=== PATIENT | male | born 1945 | race Caucasian/White ===

== ENCOUNTER 2023-05-20 11:43 | Day surgery (SDC) | payer OTHER ==
[~2023-05-20] VITALS: Wt 83.2 kg
[2023-05-20] MEDS ORDERED: LOSA50 (12:08)
[2023-05-20] MEDS ORDERED: ATEN50 (12:08)
[2023-05-20] MEDS ORDERED: AMLODIPINE-OLM1 EAC4 PO (12:08)
[2023-05-20] MEDS ORDERED: EUTHYROX50 MCG (12:08)
[2023-05-20 13:51] VITALS: BP 154/76
--- NOTE | 2023-05-20 13:53 | NUR ---
05/20/23 1353 Vi Mandujano IV DC'D, CATH INTACT. PT TOLERATED WELL. COBAN/GAUZE IN PLACE
== END 2023-05-20 13:53 | disposition home or self-care (01) ==
LOC: ORSCSDS 11:43
PROVIDERS: Internal Medicine Gastroenterology
PROC: 0DBM8ZX Excision of Descending Colon, Via Natural or Artificial Opening Endoscopic, Diagnostic (ICD-10-PCS; principal; 2023-05-20 13:30)
PROC: 0DBH8ZX Excision of Cecum, Via Natural or Artificial Opening Endoscopic, Diagnostic (ICD-10-PCS; principal; 2023-05-20 13:30)
PROC: 0DBL8ZX Excision of Transverse Colon, Via Natural or Artificial Opening Endoscopic, Diagnostic (ICD-10-PCS; principal; 2023-05-20 13:30)
DX: Z12.11 Encounter for screening for malignant neoplasm of colon (principal); Z86.010 Personal history of colon polyps; D12.4 Benign neoplasm of descending colon; D12.0 Benign neoplasm of cecum; D12.3 Benign neoplasm of transverse colon; K57.30 Diverticulosis of large intestine without perforation or abscess without bleeding; K64.8 Other hemorrhoids; I10 Essential (primary) hypertension; E03.9 Hypothyroidism, unspecified; F17.210 Nicotine dependence, cigarettes, uncomplicated; Z79.899 Other long term (current) drug therapy
CPT/HCPCS: 82947; 88305; J2704; J7120

== ENCOUNTER → 2024-09-10 | Outpatient (CLI) | payer OTHER ==
[~2024-09-10] MED LIST: AMLODIPINE-OLM1 EAC4 PO; ATEN50; EUTHYROX50 MCG; LOSA50
[2024-09-10 19:27] LABS: Protein, Urine Quantitative 8.7 mg/dL (0.0-11.9)
[2024-09-10 19:37] LABS: Microalbumin, Urine Quant. <5.000 mg/L (0.000-20.000); Sodium, Urine 70 mmol/L (20-110)
[2024-09-17 10:53] LABS: HOURS COLLECTED 24 hr; TOTAL VOLUME 1650 mL
== END | disposition home or self-care (01) ==
LOC: LAB 11:02 → LAB SHORT 11:02
PROVIDERS: Internal Medicine Nephrology
DX: N18.30 Chronic kidney disease, stage 3 unspecified (principal); D75.1 Secondary polycythemia
CPT/HCPCS: 82043; 82570; 84156; 84166; 84300; 86335

== ENCOUNTER → 2025-07-13 | Outpatient (CLI) | payer OTHER ==
[2025-07-13 20:02] LABS: Anion Gap 9.0 mmol/L (3-11); Blood Urea Nitrogen 23.0 mg/dL (8-24); CO2, Blood 28.0 mmol/L (21-32); Calcium, Blood 9.2 mg/dL (8.5-10.1); Chloride, Blood 104.0 mmol/L (98-108); Creatinine, Blood 1.11 mg/dL (0.60-1.20); Glucose, Blood 154.0 mg/dL (70-99); Potassium, Blood 3.7 mmol/L (3.5-5.5); Sodium, Blood 137.0 mmol/L (136-145); Thyroid Stimulating Hormone 1.76 uIU/mL (0.360-4.800)
== END ==
LOC: LAB 12:59 → LAB SHORT 12:59
PROVIDERS: Physician Assistant
DX: E03.9 Hypothyroidism, unspecified (principal); E11.21 Type 2 diabetes mellitus with diabetic nephropathy
CPT/HCPCS: 80048; 83036; 84443